=== PATIENT | female | born 1955 | race Caucasian/White ===

== ENCOUNTER 2024-04-09 07:13 | Day surgery (SDC) | payer MEDICARE, BC ==
[~2024-04-09] VITALS: Ht 160 cm; Wt 88.6 kg
[~2024-04-09 07:13] MED LIST: AIRBORNE CHEWA1 EACH PO; AMOXICILLIN500 MG PO; BAYER BACK & B1 EACH PO; DAILY VALUE1 EACH PO; IBLOOD GLUCOSE TEST STRIP 1 EA TEST VI PRN; LACTATED RINGER'S 1,000 ML IV SCH; LIDOCAINE HCL 1% 5 ML SDV INJ ONE; MAGNESIUM200 MG PO; MIDAZOLAM HCL 5 MG/5 ML VIAL IV PRN; MIDAZOLAM HCL 5 MG/5 ML VIAL ONE; VITAMIN B COMP1 EACH PO; fentaNYL citrate 100 MCG/2 ML VIAL IV PRN; fentaNYL citrate 100 MCG/2 ML VIAL ONE
[2024-04-09 07:34] VITALS: BP 147/65
--- NOTE | 2024-04-09 07:34 | NUR ---
VISITED DURING SPIRITUAL CARE ROUNDS. PT RECEIVING NURSING CARE. DID NOT INTERRUPT. PROVIDED PRAYER.
--- NOTE | 2024-04-09 08:00 | NUR ---
VISITED DURING SPIRITUAL CARE ROUNDS. PT EXHIBITING SMALL SIGNS OF NERVOUSNESS. LAPPING MACHINE OPERATOR PROVIDED SUPPORTIVE PRESENCE, HOSPITALITY, PRAYER. PT EXPRESSED GRATITUDE, DECREASED ANXIETY.
--- NOTE | 2024-04-09 08:54 | NUR ---
04/09/24 0854 Parvin Moralez PT TO PACU AWAKE AND ALERT CONVERSING WITH STAFF. PT DENIES PAIN AND NAUSEA.
[2024-04-09 09:12] VITALS: BP 118/79
--- NOTE | 2024-04-10 06:53 | OR ---
[facility] [address], [place] [address] Signed DATE OF OPERATION: 04/09/2024 SURGEON: Vignesh Ramires MD PREOPERATIVE DIAGNOSES: 1. Father with colon cancer age 82 and at age 84 from the cancer. 2. Diverticulosis. 3. Internal hemorrhoids. POSTOPERATIVE DIAGNOSES: 1. 4 mm polyp at 8 cm in the rectum. 2. 4 mm polyp at 50 cm in the left colon. 3. 7 mm polyp in distal right colon. 4. 4 mm polyp at 85 cm in transverse colon. 5. Minimal sigmoid diverticulosis. 6. Minimal internal hemorrhoids. 7. Anterior midline small external anal skin tag x1. PROCEDURE: Colonoscopy with hot biopsy. ESTIMATED BLOOD LOSS: None. INDICATIONS: Elly is a 68-year-old obese female, asked to see me for a followup colonoscopy . She underwent negative colonoscopies with Dr. Joshi in 2013 at the age of 57 and again in 2018 at the age of 62. She is also known to have some diverticulosis and internal hemorrhoids. Of course, she has been on the five year plan because her father developed colon cancer at age 82. He had declined treatment and he from a cancer at age 84. Currently, Elly has no lower GI complaints. She told me her came to me for a colonoscopy. She wanted to use our bowel prep rather than the one gallon jug. She told me today that was much better. I gave her a pamphlet in the office on colonoscopy. She understands the nature of the test. There is risk including, but not limited to gas bloating, crampy abdominal pain, bleeding, perforation requiring surgery, and missed diagnosis. Amazingly, she takes no medications at age 68. We had reviewed the need for IV conscious sedation. She had expressed understanding and wished to proceed. PROCEDURE IN DETAIL: Elly was taken into our endoscopy suite and placed in the left lateral decubitus Electronically Signed By: VIGNESH RAMIRES MD 04/10/24 0653 PATIENT NAME: ELLY PRINCE OPERATIVE REPORT DATE OF : 53 REPORT #: [id number] PHYSICIAN: VIGNESH RAMIRES MD PCP: LADI MCDONOUGH MD REPORT IS CONFIDENTIAL AND NOT TO BE RELEASED WITHOUT AUTHORIZATION [facility] [address], [place] [address] Signed position. She was given a total of 4 mg of Versed and 100 mcg of fentanyl to cover the case. A digital rectal exam was performed and she has just a small anterior midline external anal skin tag. She had good sphincter tone. Really no external hemorrhoids. There were no masses. The adult colonoscope was introduced and advanced under direct visualization of the camera up into the cecum itself. Her prep was good. We could easily see the appendiceal orifice and ileocecal valve. The scope was then slowly withdrawn. We took several pictures throughout for photodocumentation. The above-mentioned polyps were all removed with the help of hot biopsy forceps. She does in fact have minimal sigmoid diverticulosis. They are quite small, few in number and scattered about. Once in the rectum, the scope was retroflexed and she has very minimal internal hemorrhoid tissue. After this, the gas was suctioned out and the colonoscope removed. Elly tolerated the procedure quite well. RECOMMENDATIONS: I will see Elly back in my office in 7 to 14 days to review her results. It looks like she will be on the five year plan due to her personal and family history. Vignesh Ramires MD ALB/MODL /[id number] cc: MD Dr. Ladi Lucia Copies: VIGNESH RAMIRES MD ~ Electronically Signed By: VIGNESH RAMIRES MD 04/10/24 0653 PATIENT NAME: ELLY PRINCE DERRICK OPERATIVE REPORT DATE OF : 53 REPORT #: [id number] PHYSICIAN: VIGNESH RAMIRES MD PCP: LADI MCDONOUGH MD REPORT IS CONFIDENTIAL AND NOT TO BE RELEASED WITHOUT AUTHORIZATION
--- NOTE | 2024-04-15 19:03 | PATH ---
[facility] [address] [place] [address] Signed SPECIMEN(S): A RECTAL POLYP AT 8 CM SPECIMEN(S): B DESCENDING COLON POLYP AT 50 CM SPECIMEN(S): C DISTAL ASCENDING/RIGHT COLON POLYP SPECIMEN(S): D TRANSVERSE COLON POLYP SPECIMEN SOURCE: A. RECTAL POLYP AT 8 CM B. DESCENDING COLON POLYP AT 50 CM C. DISTAL ASCENDING/RIGHT COLON POLYP D. TRANSVERSE COLON POLYP CLINICAL HISTORY: Family Hx colon cancer FINAL PATHOLOGIC DIAGNOSIS: A. Rectal polyp at 8 cm, biopsy: - Hyperplastic polyp. - Negative for dysplasia and malignancy. B. Descending colon polyp at 50 cm, biopsy: - Tubular adenoma. - Negative for high-grade dysplasia and malignancy. C. Distal ascending/right colon polyp, biopsy: - Tubular adenoma. - Negative for high-grade dysplasia and malignancy. D. Transverse colon polyp, biopsy: - Colonic mucosa with a benign lamina propria lymphoid aggregate and marked desiccation artifact (1 of 2 pieces). - Unremarkable colonic mucosa (1 of 2 pieces). - Multiple levels are examined with no polypoid structure identified. - Negative for dysplasia and malignancy. SDL MICROSCOPIC EXAMINATION: Histologic sections of all submitted blocks are examined by light microscopy. These findings, together with the gross examination, support the pathologic diagnosis. GROSS DESCRIPTION: A. The specimen, labeled and designated "Preston rectal polyp at 8 cm," is received in formalin and consists of one krishnan soft tissue fragment, 0.2 cm. Entirely submitted in (A1). PATIENT NAME: PATRIZIA PRINCE PATHOLOGY DATE OF : 53 REPORT #: [id number] PHYSICIAN: ANGELA ALEMAN PCP: NELLIE MCDONOUGH MD REPORT IS CONFIDENTIAL AND NOT TO BE RELEASED WITHOUT AUTHORIZATION [facility] [address] [place], [place] [address] Signed B. The specimen, labeled and designated "Prince, descending colon polyp at 50 cm," is received in formalin and consists of one krishnan soft tissue fragment, 0.1 cm. Entirely submitted in (B1). C. The specimen, labeled and designated "Prince, distal ascending colon polyp," is received in formalin and consists of one krishnan soft tissue fragment, 0.1 cm. Entirely submitted in (C1). D. The specimen, labeled and designated "Prince, transverse colon polyp," is received in formalin and consists of two krishnan soft tissue fragments, ranging from 0.1 cm. Entirely submitted in (D1). JS (under the direct supervision of a pathologist) The Gross Description was prepared using a voice recognition system. The report was reviewed for accuracy; however, sound-alike word errors, addition and/or deletions may occur. If there are any questions about this report, please contact Client Services. ADDITIONAL NOTES: Immunohistochemical and/or in situ hybridization studies if performed in this case included appropriate positive controls that reacted as expected. This test was developed and its performance characteristics determined by [facility]. It has not been cleared or approved by the U.S. Food and Drug Administration. The FDA has determined that such clearance or approval is not necessary. This test is used for clinical purposes. It should not be regarded as investigational or for research. [facility] is certified under the Clinical Laboratory Improvement Amendments of 1988 (CLIA) as qualified to perform high complexity clinical laboratory testing. PERFORMING LABORATORY: Technical component was performed by [facility], [address] [place] [id number] (CLIA# [id number]). Professional interpretation was performed by [facility], [address] [place] [id number] (CLIA#: [id number]). Diagnostician: Terese Belle MD Pathologist Electronically Signed 04/15/2024 Copies: PATIENT NAME: PATRIZIA PRINCE PATHOLOGY DATE OF : 53 REPORT #: [id number] PHYSICIAN: ANGELA PATHOLOGY PCP: NELLIE MCDONOUGH MD REPORT IS CONFIDENTIAL AND NOT TO BE RELEASED WITHOUT AUTHORIZATION [facility] [address] [place] [id number] Signed ~ PATIENT NAME: PATRIZIA PRINCE PATHOLOGY DATE OF : 53 REPORT #: [id number] PHYSICIAN: [facility] PCP: NELLIE MCDONOUGH MD REPORT IS CONFIDENTIAL AND NOT TO BE RELEASED WITHOUT AUTHORIZATION
== END 2024-04-09 09:20 | disposition home or self-care (01) ==
LOC: DS 07:13
PROVIDERS: ATTEND Colon & Rectal Surgery
PROC: 0DBL8ZZ Excision of Transverse Colon, Via Natural or Artificial Opening Endoscopic (ICD-10-PCS; 2024-04-09)
PROC: 0DBP8ZZ Excision of Rectum, Via Natural or Artificial Opening Endoscopic (ICD-10-PCS; 2024-04-09)
PROC: 0DBF8ZZ Excision of Right Large Intestine, Via Natural or Artificial Opening Endoscopic (ICD-10-PCS; 2024-04-09)
PROC: 0DBG8ZZ Excision of Left Large Intestine, Via Natural or Artificial Opening Endoscopic (ICD-10-PCS; principal; 2024-04-09 08:15)
DX: D12.4 Benign neoplasm of descending colon (principal); D12.2 Benign neoplasm of ascending colon; K63.5 Polyp of colon; K62.1 Rectal polyp; K57.30 Diverticulosis of large intestine without perforation or abscess without bleeding; K64.8 Other hemorrhoids; K64.4 Residual hemorrhoidal skin tags; Z80.0 Family history of malignant neoplasm of digestive organs; E66.9 Obesity, unspecified; M19.90 Unspecified osteoarthritis, unspecified site; Z68.34 Body mass index [BMI] 34.0-34.9, adult; Z79.899 Other long term (current) drug therapy
CPT/HCPCS: 88305; 99153; G0500; J2250; J3010; J7121